=== PATIENT | male | born 1980 | race Caucasian/White ===

== ENCOUNTER 2018-06-10 10:24 | Outpatient (CLI) | payer BC ==
[2018-06-10 11:31] LABS: #Eosinphils 0.1 thou/uL (0.0-0.7); #Lymphocytes 1.6 thou/uL (1.20-3.40); #Monocytes 0.4 thou/uL (0.11-0.59); #Neutrophils 3.1 thou/uL (1.40-6.50); %Basophils 0.9 % (0.0-1.0); %Eosinophils 1.4 % (0.0-10.0); %Lymphocytes 30.2 % (21.0-51.0); %Monocytes 8.2 % (0.0-10.0); %Neutrophils 59.4 % (42.0-75.0); Hemoglobin 15.2 g/dL (14.0-18.0); Mean Corpuscular Hemoglobin 30.8 pg (27.0-31.0); Mean Corpuscular Volume 88.2 fL (78.0-98.0); Mean Platelet Volume 7.7 fL (7.4-10.4); Platelet Count 192 thou/uL (130-400); RBC Distribution Width 11.7 % (11.5-14.5); Red Blood Cell (RBC) Count 4.94 mill/uL (4.70-6.10); White Blood Cell (WBC) Count 5.3 thou/uL (4.8-10.8)
== END 2018-06-10 10:25 | disposition home or self-care (01) ==
LOC: LABBT 10:24
PROVIDERS: ATTEND Surgery
DX: Z01.812 Encounter for preprocedural laboratory examination (principal); K40.20 Bilateral inguinal hernia, without obstruction or gangrene, not specified as recurrent
CPT/HCPCS: 85025

== ENCOUNTER 2018-06-21 07:55 | Day surgery (SDC) | payer BC ==
[2018-06-10 10:36] VITALS: BMI 30.4
--- NOTE | 2018-06-21 07:50 | HP ---
CHIEF COMPLAINT: Bilateral inguinal hernia. HISTORY OF PRESENT ILLNESS: The patient is a 37-year-old male, who has known bilateral inguinal maría ias. They are causing a lot of pain. He is here for repair. PAST MEDICAL HISTORY: Significant for dermatitis. PAST SURGICAL HISTORY: Left knee surgery in 1999. He did have an inguinal hernia repair at age 1. MEDICATIONS: None. ALLERGIES: He has allergies to BACTRIM and certain clothing dyes. FAMILY HISTORY: Both parents are alive in good health. SOCIAL HISTORY: He is . He drinks occasional alcohol, no tobacco. PHYSICAL EXAMINATION: GENERAL: Height 5 feet 9, weight 206, body mass index 30.4. VITAL SIGNS: Blood pressure 129/84, pulse 96. GENERAL: A well-developed, well-nourished male, in no apparent distress. HEENT: Unremarkable. LUNGS: Clear. HEART: Regular rate and rhythm. ABDOMEN: Soft, nondistended, nontender, good bowel sounds, no masses. EXTREMITIES: Good pulses. No pedal edema. GENITAL EXAM: He has bilateral inguinal hernias. The right is larger than the left. They are reduc ible. ASSESSMENT: Bilateral inguinal hernias. PLAN: Laparoscopic robotic-assisted bilateral inguinal hernia repair with mesh. CONSENT: Discussed planned procedure as well as risk of bleeding, infection, injury to nerves, injur y to bowel or bladder, recurrence of the hernias. He understands and gives informed consent.
[2018-06-21] MEDS ORDERED: CEFAZOLIN/Water 2 GM/20 ML SYRINGE ONE (09:08)
[2018-06-21] MEDS ORDERED: Midazolam HCl 2 mg/2 ml Vial ONE ×2 (10:39→11:25)
[2018-06-21] MEDS ORDERED: Bupivacaine/Epinephrine 0.25% 30 ML VIAL ONE (11:14)
[2018-06-21] MEDS ORDERED: Fentanyl 100 MCG/2 ML VIAL ONE ×2 (11:24→11:25)
[2018-06-21] MEDS ORDERED: Famotidine/PF 20 mg/2ml Vial ONE (11:24)
[2018-06-21] MEDS ORDERED: Fentanyl 250 MCG/5 ML VIAL ONE (11:24)
--- NOTE | 2018-06-21 13:58 | OP ---
PREOPERATIVE DIAGNOSIS: Bilateral inguinal hernia. SURGEON: Neal Hogan M.D. PROCEDURE PERFORMED: Bilateral inguinal hernia repair with mesh. INDICATIONS: A 37-year-old male with a right groin bulge and also found to have a left inguinal maría ia. FINDINGS: Bilateral inguinal hernia. PROCEDURE IN DETAIL: After informed consent was obtained, the patient was taken to the operating teodora m, given general endotracheal anesthesia, placed in the supine position. Abdomen was prepped and meagan ped in usual fashion. Local anesthesia infiltrated subcutaneously and deep. A supraumbilical incisi on was performed. The subcu divided sharply. The fascia incised. Digital palpation revealed no loc al adhesions. A 10-12 mm trocar inserted. Pneumoperitoneum was created to a pressure of 15 mmHg. A 30-degree laparoscope inserted under direct vision, two 8 mm ports were placed just lateral to the r ectus muscle at the level of the initial incision. The patient then placed in Trendelenburg position and the robot docked. Then, I went down to the console started to look at the pelvis, he had bilate ral inguinal hernias started on the right as it was larger. The peritoneum was opened from median um bilical ligament laterally and a subperitoneal plane developed using blunt and sharp dissection. The hernia sac was dissected out and reduced. The pubic tubercle was exposed then moved to the left camila e again the peritoneum opened from median umbilical ligament laterally. A subperitoneal plane develo ped exposing and reducing the hernia as well as exposing the pubic tubercle on the right. A large co ntour right-sided mesh was inserted and placed within the pocket then a medium left-sided mesh was in serted and placed in its pocket. Then using 2-0 silk suture tied intracorporeally, the mesh was secur ed, the pubic tubercle bilateral and to the anterior abdominal wall just medial to the epigastric ves sels. Then the peritoneum was closed with a running Stradis 3-0 V-Loc suture bilateral. During diss ection on the left side, a cord lipoma was also excised. This was grasped and retrieved through the umbilical incision. The robot undocked, the abdomen decompressed. The fascia closed with interrupte d 2-0 Vicryl suture. The skin closed with interrupted 4-0 Rapide. Steri-Strips applied. Sterile ba ndage applied. The patient tolerated the procedure well and was transferred to recovery in good cond ition. Sponge and needle count verified correct x2.
[2018-06-21] MEDS ORDERED: Glycopyrrolate 0.2 MG/ML 5 ML SYRINGE ONE (14:36)
[2018-06-21] MEDS ORDERED: Ketorolac Tromethamine 30 MG/ML VIAL ONE (14:36)
[2018-06-21] MEDS ORDERED: Ondansetron HCl/PF 4 MG/2 ML Vial ONE (14:36)
[2018-06-21] MEDS ORDERED: PROPOFOL 200 MG/20 ML VIAL ONE (14:36)
[2018-06-21] MEDS ORDERED: Lidocaine 1% PF 5 ML VIAL ONE (14:36)
[2018-06-21] MEDS ORDERED: Dexamethasone 20 MG/5 ML VIAL ONE (14:36)
[2018-06-21] MEDS ORDERED: HYDROcodone/Acetaminophen 5/325 mg Tablet ONE (14:50)
== END 2018-06-21 15:15 | disposition home or self-care (01) ==
LOC: SDC 07:55
PROVIDERS: ATTEND Surgery
PROC: 0YUA0JZ Supplement Bilateral Inguinal Region with Synthetic Substitute, Open Approach (ICD-10-PCS; principal; 2018-06-21)
DX: K40.20 Bilateral inguinal hernia, without obstruction or gangrene, not specified as recurrent (principal); L30.9 Dermatitis, unspecified; Z88.1 Allergy status to other antibiotic agents; Z88.2 Allergy status to sulfonamides; Z79.899 Other long term (current) drug therapy
CPT/HCPCS: 96374; C1781; J0131; J1100; J1885; J2001; J2250; J2405; J2704; J3010; S0028